=== PATIENT | female | born 1995 | race Caucasian/White ===

== ENCOUNTER 2020-06-03 09:43 | Emergency (ER) | payer OTHER ==
[~2020-06-03] VITALS: Ht 160 cm; Wt 61.7 kg
[2020-06-03 09:49] VITALS: BP 110/79
--- NOTE | 2020-06-03 09:55 | NUR ---
PT C/O SUBJECTIVE FEVER, DRY COUGH, MID BACK PAIN, DIFFICULTY BREATHING, WERNER X 2 WEEKS. PT HAD COVID TESTED EVERY WEEK W/ ALL NEGATIVE RESULTS.
[2020-06-03] MEDS ORDERED: PROMETHAZINE DM 6.25/15MG-5ML ORASYR PO SCH (10:05)
[2020-06-03] MEDS ORDERED: KETOROLAC 30 MG/ML VIAL IVP ONE (10:05)
[2020-06-03] MEDS ORDERED: NACL 0.9% 1,000 ML IV ONE (10:05)
[2020-06-03] MEDS ORDERED: ALBUTEROL 0.083% 2.5 MG/3 ML NEBU INH ONE (10:05)
[2020-06-03] MEDS ORDERED: ACETAMINOPHEN 325 MG TAB PO ONE (10:15)
[2020-06-03 10:25] LABS: BASOPHILS % (AUTO) 0.3 % (0.0-2.0); HEMOGLOBIN 11.5 g/dL (12.0-16.0); LYMPHOCYTES % (AUTO) 18.5 % (20.5-51.1); MEAN CORPUSCULAR HEMOGLOBIN 30 pg (27-31); MEAN CORPUSCULAR HGB CONC 34 g/dL (33-37); MEAN CORPUSCULAR VOLUME 88.4 fL (80-94); MONOCYTES # (AUTO) 1.7 K/uL (0.8-1.0); MONOCYTES % (AUTO) 15.6 % (1.7-9.3); NEUTROPHILS # (AUTO) 7.1 K/uL (1.8-7.7); NEUTROPHILS % (AUTO) 65.6 % (42.2-75.2); PLATELET COUNT (AUTO) 366 K/uL (140-450); RED BLOOD CELL COUNT(AUTO) 3.85 MIL/uL (4.20-5.40); RED CELL DISTRIBUTION WIDTH 13.1 % (11.6-13.7); WHITE BLOOD COUNT (AUTO) 10.8 K/uL (4.8-10.8)
[2020-06-03] MEDS ORDERED: guaiFENesin DM 200/20 MG-10 ML 10 ML UDC PO ONE (10:25)
[2020-06-03 10:32] LABS: APPEARANCE,URINE CLOUDY (CLEAR); BILIRUBIN,URINE NEGATIVE (NEGATIVE); BLOOD, URINE 1+ (NEGATIVE); COLOR,URINE YELLOW (YELLOW); LEUKOCYTE ESTERASE ,URINE 3+ (NEGATIVE); NITRITE, URINE NEGATIVE (NEGATIVE); UGLUCOSE NEGATIVE (NEGATIVE)
[2020-06-03 10:45] LABS: WBC,URINE 60-80 /HPF (0-5)
[2020-06-03 10:48] LABS: ANION GAP 15.1 (8-16); CARBON DIOXIDE 25.6 mmol/L (21-32); CREATININE 0.8 mg/dL (0.6-1.3); POTASSIUM 3.7 mmol/L (3.5-5.1)
[2020-06-03 11:38] VITALS: BP 114/75
--- NOTE | 2020-06-03 11:38 | NUR ---
Patient discharged with v/s stable. Written and verbal after care instructions given and explained. Patient alert, oriented and verbalized understanding of instructions. Ambulatory with steady gait. All questions addressed prior to discharge. ID band removed. Patient advised to follow up with PMD. Rx of Augmentin, Tessalon, Albuterol, and Promethazine given. Patient educated on indication of medication including possible reaction and side effects. Opportunity to ask questions provided and answered.
--- NOTE | 2020-06-09 03:47 | NUR ---
late entry-------- [facility] results recieved from laboratory, results shown to Dr. Carlson. Advised to make corrections by; d/c augmentin Rx and start keflex abx therapy. Will endorse to oncoming shift.
== END 2020-06-03 11:38 | disposition home or self-care (01) ==
LOC: MED 09:43
DX: R50.9 Fever, unspecified (principal); J18.9 Pneumonia, unspecified organism
CPT/HCPCS: 36415; 71045; 80048; 81001; 81025; 85025; 87086; 93005; 94640; 96374; 99285; J1885; J7030; J7613